=== PATIENT | male | born 1990 | race Hispanic/Latino ===

== ENCOUNTER 2019-03-04 01:49 | Emergency (ER) | payer SELFPAY ==
[2019-03-04] MEDS ORDERED: Adacel (T-DAP) 0.5 ML SYRINGE ONE (03:40)
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
== END 2019-03-04 04:10 | disposition home or self-care (01) ==
LOC: ERS 01:49
DX: S02.2XXA Fracture of nasal bones, initial encounter for closed fracture (principal); S01.21XA Laceration without foreign body of nose, initial encounter; V19.9XXA Pedal cyclist (driver) (passenger) injured in unspecified traffic accident, initial encounter
CPT/HCPCS: 12011; 70450; 70486; 90471; 90715